=== PATIENT | female | born 1990 | race Caucasian/White ===

== ENCOUNTER 2019-05-06 09:40 | Emergency (ER) | payer BC, OTHER | END 2019-05-06 10:48 | disposition home or self-care (01) | LOC: JER 09:40 → JERFT 10:48 ==

== ENCOUNTER 2022-08-01 17:05 | Inpatient (IN) | payer OTHER ==
[2022-08-01] MEDS ORDERED: ELECTROLYTE-148 SOLN 1,000 ML IV SCH (18:00)
[2022-08-01] MEDS ORDERED: AMPICILLIN SODIUM 2 GM VIAL IVPB ONE (18:15)
[2022-08-01] MEDS ORDERED: AMPICILLIN SODIUM 2 GM VIAL ONE (18:18)
[2022-08-01 19:19] VITALS: BMI 34.9
[2022-08-01 20:49] LABS: INR 0.93 (0.83-1.09); PROTHROMBIN TIME (PATIENT) 10.7 SEC (9.7-13.0)
[2022-08-01 20:51] LABS: ACTIVATED PTT 26.9 SECONDS (25.2-36.5)
[2022-08-01 20:59] LABS: BASO % 0.3 % (0-2.0); EOS % 0.1 % (0-4.5); HEMATOCRIT 34.1 % (32.4-45.2); HEMOGLOBIN 11.1 GM/dL (10.7-15.3); LYMPH % 7.2 % (8-40); MCH 29.7 pg (25.7-33.7); MCHC 32.6 g/dl (32.0-36.0); MEAN CELL VOLUME 91.1 fl (80-96); MEAN PLT VOLUME 10.2 fl (7.5-11.1); MONO % 5.7 % (3.8-10.2); NEUT % 86.7 % (42.8-82.8); PLATELET COUNT 231 10^3/uL (134-434); RBC 3.74 M/mm3 (3.60-5.2); RDW 14.9 % (11.6-15.6); WHITE BLOOD COUNT 15.1 K/mm3 (4.0-10.0)
[2022-08-01 21:06] LABS: BLOOD UREA NITROGEN 6.9 mg/dL (7-18); CALCIUM 8.5 mg/dL (8.5-10.1)
[2022-08-01 21:10] LABS: CREATININE 0.6 mg/dL (0.55-1.3)
[2022-08-01 22:00] LABS: HIV INTERPRETATION NEGATIVE (NEGATIVE)
[2022-08-01] MEDS ORDERED: AMPICILLIN SODIUM 1 GM VIAL ONE (22:05)
[2022-08-01] MEDS: AMPICILLIN - 1 GM in SODIUM CHLORIDE 100 ML IVPB SCH (22:09)
[2022-08-01] MEDS: ELECTROLYTE-148 SOLN 1,000 ML IV SCH (23:05)
[2022-08-01] MEDS ORDERED: PROMETHAZINE HCL 25 MG/1 ML VIAL IVPB ONE (23:20)
[2022-08-01] MEDS ORDERED: BUTORPHANOL TARTRATE 1 MG/ML VIAL IVPB ONE ×2 (23:20)
[2022-08-01] MEDS ORDERED: BUTORPHANOL TARTRATE 1 MG/ML VIAL ONE (23:26)
[2022-08-01] MEDS ORDERED: PROMETHAZINE HCL 25 MG/1 ML VIAL ONE (23:26)
[2022-08-02] MEDS ORDERED: AMPICILLIN SODIUM 1 GM VIAL ONE ×2 (02:09→06:20)
[2022-08-02] MEDS: AMPICILLIN - 1 GM in SODIUM CHLORIDE 100 ML IVPB SCH ×3 (02:15→10:32)
[2022-08-02] MEDS: ELECTROLYTE-148 SOLN 1,000 ML IV SCH (04:50)
[2022-08-02] MEDS ORDERED: OXYTOCIN 20 UNITS in 0.9% NS 20 UNIT/1,000 ML INFUS.BAG IV ONE (07:13)
[2022-08-02] MEDS ORDERED: OXYTOCIN 30 UNITS in 0.9% NS 30 UNIT/500 ML INFUS.BAG IVPB ONE (08:57)
[2022-08-02] MEDS ORDERED: OXYTOCIN 30 UNITS in 0.9% NS 30 UNIT/500 ML INFUS.BAG IVPB SCH (09:00)
[2022-08-02] MEDS ORDERED: OXYTOCIN 10 UNITS/ML VIAL ONE (09:24)
[2022-08-02] MEDS ORDERED: MISOPROSTOL 200 MCG TABLET ONE (09:24)
[2022-08-02] MEDS ORDERED: BENZOCAINE 28 GM HEMORRHOIDAL OINTMENT TP PRN (09:42)
[2022-08-02] MEDS ORDERED: BISACODYL 10 MG SUPP.RECT RC PRN (09:42)
[2022-08-02] MEDS ORDERED: ACETAMINOPHEN 325 MG TABLET (FP) PO PRN (09:42)
[2022-08-02] MEDS ORDERED: BENZOCAINE 20% 57 GM BOTTLE TP PRN (09:42)
[2022-08-02] MEDS ORDERED: WITCH HAZEL 50% (TUCKS) 40 PAD/JAR PAD TP PRN (09:42)
[2022-08-02] MEDS ORDERED: IBUPROFEN 600 MG TABLET (FP) PO PRN (09:42)
[2022-08-02] MEDS ORDERED: OXYTOCIN 20 UNITS in 0.9% NS 20 UNIT/1,000 ML INFUS.BAG IV SCH (09:45)
[2022-08-02 09:46] LABS: CORD BASE EXCESS -6.2 mmol/L (0-2); CORD HCO3 21.5 mmHg (20-29); CORD pH 7.251 (7.14-7.44)
[2022-08-02 09:47] LABS: CORD BASE EXCESS -8.8 mmol/L (0-2); CORD HCO3 21.8 mmHg (20-29); CORD PCO2 65.7 mmHg (30-78); CORD pH 7.139 (7.14-7.44)
[2022-08-02 10:13] LABS: COCAINE, UR NEGATIVE (NEGATIVE); OPIATES, URI NEGATIVE (NEGATIVE); PHENCYCLIDINE,URINE NEGATIVE (NEGATIVE); URINE BARBITURATES NEGATIVE (NEGATIVE); URINE BENZODIAZEPINES NEGATIVE (NEGATIVE)
[2022-08-02 10:14] LABS: METHADONE, UR NEGATIVE (NEGATIVE)
[2022-08-02 10:19] LABS: URINE AMPHETAMINES NEGATIVE (NEGATIVE)
[2022-08-02] MEDS ORDERED: OXYTOCIN 10 UNITS/ML VIAL IM ONE (11:19)
[2022-08-02] MEDS ORDERED: MISOPROSTOL 100 MCG TABLET PV ONE (11:19)
[2022-08-03 08:14] LABS: BASO % 0.2 % (0-2.0); EOS % 0.3 % (0-4.5); HEMATOCRIT 28.7 % (32.4-45.2); HEMOGLOBIN 9.3 GM/dL (10.7-15.3); LYMPH % 14.9 % (8-40); MCH 29.9 pg (25.7-33.7); MCHC 32.5 g/dl (32.0-36.0); MEAN PLT VOLUME 9.6 fl (7.5-11.1); MONO % 9.8 % (3.8-10.2); NEUT % 74.8 % (42.8-82.8); PLATELET COUNT 208 10^3/uL (134-434); RBC 3.11 M/mm3 (3.60-5.2); WHITE BLOOD COUNT 13.1 K/mm3 (4.0-10.0)
[2022-08-03] MEDS ORDERED: SENNOSIDES/DOCUSATE COMBO (SENNA PLUS) TABLET (UD) PO PRN (22:00)
[2022-08-04 09:43] VITALS: BP 97/59; PULSE 67; RESP 18; TEMP 98.4
[2022-08-05 09:39] LABS: POC NITRAZINE POS
== END 2022-08-04 14:00 | disposition home or self-care (01) | DRG 560 ==
LOC: JDEL 17:05 → JLDR 17:55 → J3W 08-02 12:20
PROVIDERS: ADMIT Student in an Organized Health Care Education/Training Program; ATTEND Student in an Organized Health Care Education/Training Program
PROC: 10E0XZZ Delivery of Products of Conception, External Approach (ICD-10-PCS; principal; 2022-08-02)
DX: O42.92 Full-term premature rupture of membranes, unspecified as to length of time between rupture and onset of labor (principal); Z3A.41 41 weeks gestation of pregnancy; Z37.0 Single live birth
CPT/HCPCS: 36415; 36600; 59025; 59409; 80048; 80307; 82803; 83986-QW; 85025; 85610; 85730; 86780; 86850; 86900; 86901; 87389; C9803-CS; G0463-25; U0003; U0005